=== PATIENT | male | born 1955 | race Caucasian/White ===

== ENCOUNTER → 2020-01-13 11:23 | Outpatient (CLI) | payer MEDICARE, SELFPAY ==
--- NOTE | ~2020-01-13 | XR_ITS ---
EXAMINATION: XR knee RT min 4V DATE: 01/13/2020 11:48 INDICATION: Right knee pain. TECHNIQUE: 4 views of right knee were obtained. COMPARISON: None. FINDINGS: There is varus angulation at the knee. No fracture. There is severe osteoarthritis of media l compartment and mild osteoarthritis of lateral and patellofemoral compartments. No knee joint effus ion. There are loose bodies in a Espinosa's cyst. IMPRESSION: 1. Severe right knee osteoarthritis. 2. Loose bodies in a Espinosa's cyst. Reviewed, dictated and finalized at location A.
== END ==
PROVIDERS: Visit Provider Orthopaedic Surgery Sports Medicine
DX: M17.11 Unilateral primary osteoarthritis, right knee (principal); M23.41 Loose body in knee, right knee
CPT/HCPCS: 73564

== ENCOUNTER → 2020-02-11 14:14 | Outpatient (CLI) | payer MEDICARE, SELFPAY ==
--- NOTE | ~2020-02-11 | XR_ITS ---
EXAMINATION: XR ankle LT min 3V DATE: 02/11/2020 15:05 INDICATION: Left ankle pain. TECHNIQUE: 4 views of left ankle were obtained. COMPARISON: None. FINDINGS: There is lateral subluxation or dislocation of calcaneus with respect to talus. There is li emi lateral subluxation or dislocation of navicular with respect to talus. Navicular is not well def ined on the lateral view, and there may be bone volume loss of navicular or fusion of the navicular w ith talus. There is moderate to severe osteoarthritis of the subtalar joint and naviculocuneiform lizabeth nts. No acute fracture. There is heterotopic ossification distal to medial malleolus. There is mild o steoarthritis of the ankle joint. There are enthesophytes at the posterior and plantar aspects of luann caneal tuberosity. Ankle soft tissue swelling is noted. IMPRESSION: 1. Deformity of the hindfoot suspicious for subluxation or dislocation at the subtalar joint and talo navicular joint. Foot radiographs are recommended. 2. Polyarticular osteoarthritis. Reviewed, dictated and finalized at location A. IMPRESSION: 1. Deformity of the hindfoot suspicious for subluxation or dislocation at the s ubtalar joint and talonavicular joint. Foot radiographs are recommended. 2. Polyarticular osteoarthritis.
--- NOTE | ~2020-02-11 | XR_ITS ---
XR ankle RT min 3V 02/11/2020 15:05 Indication: Right ankle pain Procedure: 4 views right ankle Comparison: No prior studies for comparison. Findings: There is advanced polyarticular osteoarthritis of the hindfoot and mid foot, most pronounce d at the talonavicular and subtalar joints. There are is a degenerative calcaneal enthesophyte. There is ossification heterotopic leg, likely involving the Achilles tendon, consistent with remote injury . Mild lateral soft tissue swelling. No acute fracture is identified. Impression: 1: Advanced polyarticular osteoarthritis of the right ankle and midfoot. Reviewed, dictated and finalized at location A. Impression: 1: Advanced polyarticular osteoarthritis of the right ankle and midfoot.
== END ==
DX: M19.072 Primary osteoarthritis, left ankle and foot (principal); M19.071 Primary osteoarthritis, right ankle and foot
CPT/HCPCS: 73610

== ENCOUNTER → 2020-06-23 09:51 | Outpatient (CLI) | payer MEDICARE, SELFPAY ==
--- NOTE | ~2020-06-23 | CT_ITS ---
EXAMINATION: CT ankle LT wo con DATE: 06/23/2020 10:16 INDICATION: Left ankle pain. Primary osteoarthritis. TECHNIQUE: Computed tomography (CT) of the left ankle was performed without intravenous contrast. Aut omated exposure control and iterative reconstruction technique were employed. The dose-length product was 178.43 mGy-cm. Surface rendered 3-D reconstructions were created by the technologist on a [id number] workstation under radiologist supervision. COMPARISON: Left ankle radiographs 02/11/2020 FINDINGS: There is lateral subluxation and valgus angulation of calcaneus with respect to talus. Ther e is lateral subluxation and valgus angulation of the navicular with respect to talus. No acute fract ure. There is heterotopic ossification distal to medial malleolus. There is moderate osteoarthritis o f the tibiotalar joint. There is a pseudoarthrosis between the distal fibula and calcaneus. There is severe osteoarthritis of subtalar joint, talonavicular joint, and the naviculocuneiform joints. There is moderate osteoarthritis of calcaneocuboid joint and mild osteoarthritis of the Lisfranc joint. Th ere are loose bodies in the ankle joint. There is heterotopic calcification dorsal to the midfoot. Th ere are enthesophytes at the posterior and plantar aspects of calcaneal tuberosity. There is soft tis panda swelling of the ankle. IMPRESSION: 1. Polyarticular osteoarthritis. Reviewed, dictated and finalized at location A. FIRST
== END ==
DX: M19.072 Primary osteoarthritis, left ankle and foot (principal)
CPT/HCPCS: 73700

== ENCOUNTER → 2020-07-14 14:27 | Outpatient (CLI) | payer MEDICARE, SELFPAY ==
--- NOTE | ~2020-07-14 | XR_ITS ---
EXAMINATION: 1. XR ankle LT min 3V 2. XR foot LT min 3V DATE: 07/14/2020 15:17 INDICATION: Left foot pain. TECHNIQUE: 4 views of left ankle and 4 views of left foot were obtained. COMPARISON: Left ankle radiographs 02/11/2020, left ankle CT 06/23/2020 FINDINGS: LEFT FOOT: There is mild hallux valgus. No fracture. There are changes of arthrodesis procedure at th e talonavicular joint with 2 lag screws. There are changes of arthrodesis procedure at the subtalar j oint with 2 lag screws and lateral staple. There is severe osteoarthritis of the naviculocuneiform lisandra ints and mild osteoarthritis of many of the other midfoot joints, first metatarsophalangeal joint, an d some of the interphalangeal joints. There are enthesophytes at the posterior and plantar aspects of calcaneal tuberosity. LEFT ANKLE: Bone alignment is normal. No fracture. There is moderate osteoarthritis of the ankle join t, worst medially. There is ankle soft tissue swelling. There are dystrophic calcifications in the so ft tissues around the ankle. IMPRESSION: 1. Arthrodesis procedures involving the subtalar joint and talonavicular joint. 2. Polyarticular osteoarthritis. 3. Mild hallux valgus. Reviewed, dictated and finalized at location A. IMPRESSION: 1. Arthrodesis procedures involving the subtalar joint and talonavicular joint. 2. Polyarticular osteoarthritis. 3. Mild hallux valgus.
== END ==
DX: M79.672 Pain in left foot (principal); M25.572 Pain in left ankle and joints of left foot; Z98.890 Other specified postprocedural states; M19.072 Primary osteoarthritis, left ankle and foot; M20.12 Hallux valgus (acquired), left foot
CPT/HCPCS: 73610; 73630

== ENCOUNTER → 2020-08-16 13:47 | Outpatient (CLI) | payer MEDICARE, SELFPAY ==
--- NOTE | ~2020-08-16 | XR_ITS ---
EXAMINATION: XR ankle LT min 3V, XR foot LT min 3V DATE: 08/16/2020 14:34 INDICATION: Left foot and ankle pain TECHNIQUE: 1. Anteroposterior, mortise, additional oblique and lateral view of the left ankle were obtained. 2. Dorsoplantar, two oblique and lateral views of the left foot were obtained. COMPARISON: None. FINDINGS: Subtalar arthrodesis spanned by a pair of cannulated lag screws extending anterosuperior the from the posterior tuberosity of the calcaneus and there is also a staple spanning the lateral aspect of the subtalar joint. Talonavicular arthrodesis spanned by a medial sided cannulated leg screw and bilatera l sided compression screw. Prominent hypertrophic change at the dorsal head of the talus. There is ca sting material about the left ankle and foot through the distal aspect of the metatarsals and which o bscures fine bone and soft tissue detail. Alignment appears near-anatomic. No fracture. Polyarticular osteoarthritis, mild to moderate at the navicular cuneiform articulation and majority the remaining joints in the left foot. Small Achilles calcaneal spur and moderate-sized plantar calcaneal spur. IMPRESSION: 1. Postoperative changes of instrumented subtalar and talonavicular arthrodeses which are in near-claudia tomic alignment. 2. Polyarticular osteoarthritis at the left ankle and throughout the left foot, moderate at the navic ular cuneiform joints and otherwise mild. 3. Achilles and plantar calcaneal spurs. Reviewed, dictated and finalized at location A. IMPRESSION: 1. Postoperative changes of instrumented subtalar and talonavicular arthrodeses which are in near-anatomic alignment. 2. Polyarticular osteoarthritis at the left ankle and throughout the left foot, moderate at the navicular cuneiform joints and otherwise mild. 3. Achilles and plantar calcaneal spurs.
== END ==
DX: M19.072 Primary osteoarthritis, left ankle and foot (principal)
CPT/HCPCS: 73610; 73630

== ENCOUNTER → 2020-09-08 07:29 | Outpatient (CLI) | payer MEDICARE, SELFPAY ==
--- NOTE | ~2020-09-08 | XR_ITS ---
EXAMINATION: XR ankle LT min 3V DATE: 09/08/2020 08:34 INDICATION: Left ankle pain TECHNIQUE: Anteroposterior, lateral, mortise, and additional oblique view of the ankle were obtained. COMPARISON: 08/16/2020 FINDINGS: Again seen are changes of subtalar and talonavicular arthrodesis. A staple spans the latera l aspect of the subtalar joint. Bone alignment is normal. No fracture is identified. There is promine nt hypertrophic change of the dorsal/distal talus. Calcified atherosclerosis is noted. There is moder ate osteoarthritis of the midfoot. IMPRESSION: 1. Surgical changes of subtalar and talonavicular arthrodesis without acute findings. Reviewed, dictated and finalized at location D. IMPRESSION: 1. Surgical changes of subtalar and talonavicular arthrodesis without acute fin dings.
--- NOTE | ~2020-09-08 | XR_ITS ---
EXAMINATION: XR foot LT min 3V DATE: 09/08/2020 08:34 INDICATION: Left foot pain TECHNIQUE: Dorsoplantar, lateral, and 2 oblique views of the left foot were obtained. COMPARISON: 08/16/2020 FINDINGS: Again noted are changes of subtalar and talonavicular arthrodesis. A staple spans the later al subtalar joint. There is no fracture. Moderate osteoarthritis is noted in the midfoot. Bone alignm ent is normal. There is hypertrophic change of the dorsal/distal aspect of the talus mild osteoarthri tis is noted at the metatarsophalangeal joint and in multiple interphalangeal joints. IMPRESSION: 1. Changes of subtalar and talonavicular fusion without acute osseous abnormality. Reviewed, dictated and finalized at location D. IMPRESSION: 1. Changes of subtalar and talonavicular fusion without acute osseous abnormali ty.
== END ==
DX: M19.072 Primary osteoarthritis, left ankle and foot (principal)
CPT/HCPCS: 73610; 73630

== ENCOUNTER → 2020-10-06 08:54 | Outpatient (CLI) | payer MEDICARE, SELFPAY ==
--- NOTE | ~2020-10-06 | XR_ITS ---
EXAMINATION: XR ankle LT min 3V, XR foot LT min 3V DATE: 10/06/2020 09:25 INDICATION: Left foot and ankle pain post surgery TECHNIQUE: 1. Anteroposterior, mortise, additional oblique and lateral view of the left ankle were obtained. 2. Dorsoplantar, two oblique and lateral views of the left foot were obtained. COMPARISON: 09/08/2020 FINDINGS: Subtalar arthrodesis spanned by a pair of cannulated lag screws extending anterosuperior the from the posterior tuberosity of the calcaneus and there is also a staple spanning the lateral aspect of the subtalar joint. Talonavicular arthrodesis spanned by a medial sided cannulated lag screw and lateral sided compression screw. Prominent hypertrophic and cystic change at the dorsal head of the talus. Al ignment appears near-anatomic. No fracture. Polyarticular osteoarthritis, moderate at the navicular c uneiform articulation and mild at the majority of the remaining joints in the left foot. No evident o steolysis to suggest osteomyelitis. Small Achilles calcaneal spur and moderate-sized plantar calcanea l spur. Small amount of enthesopathic ossification at the proximal plantar aponeurosis. Scattered vas cular calcifications. Small heterotopic ossicles about the medial and lateral aspects of the ankle li emi sequela of chronic ankle sprains. Increased density at the anterior and posterior recess of the ankle joint suggesting the presence of a joint effusion. Persistent edema at Kager's fat pad. Persist ent diffuse soft tissue swelling about the ankle and hindfoot. IMPRESSION: 1. Postoperative changes of instrumented subtalar and talonavicular arthrodeses which are in near-claudia tomic alignment. 2. Polyarticular osteoarthritis at the left ankle and throughout the left foot, moderate at the navic ular cuneiform joints and otherwise mild. 3. Ankle joint effusion and diffuse soft tissue swelling about the left ankle and hindfoot. No eviden t osteolysis to suggest osteomyelitis. Reviewed, dictated and finalized at location A. IMPRESSION: 1. Postoperative changes of instrumented subtalar and talonavicular arthrodeses which are in near-anatomic alignment. 2. Polyarticular osteoarthritis at the left ankle and throughout the left foot, moderate at the navicular cuneiform joints and otherwise mild. 3. Ankle joint effusion and diffuse soft tissue swelling about the left ankle a nd hindfoot. No evident osteolysis to suggest osteomyelitis.
== END ==
DX: M79.672 Pain in left foot (principal); M25.572 Pain in left ankle and joints of left foot; Z98.890 Other specified postprocedural states; M19.072 Primary osteoarthritis, left ankle and foot; M25.472 Effusion, left ankle
CPT/HCPCS: 73610; 73630

== ENCOUNTER → 2020-12-20 07:42 | Outpatient (CLI) | payer MEDICARE, SELFPAY ==
--- NOTE | ~2020-12-20 | XR_ITS ---
EXAMINATION: XR foot LT min 3V DATE: 12/20/2020 08:16 INDICATION: Left foot pain TECHNIQUE: Dorsoplantar, lateral, and 2 oblique views of the left foot were obtained. COMPARISON: 10/06/2020 FINDINGS: Surgical changes of subtalar and talonavicular arthrodesis are again noted. There is modera te osteoarthritis in the midfoot and at the first metatarsophalangeal joint. Mild osteoarthritis is p resent throughout the remainder of the interphalangeal joints. There is no fracture. The soft tissues are unremarkable. IMPRESSION: 1. Mild to moderate osteoarthritis without acute findings or significant interval change. Reviewed, dictated and finalized at location B. IMPRESSION: 1. Mild to moderate osteoarthritis without acute findings or significant interv al change.
--- NOTE | ~2020-12-20 | XR_ITS ---
EXAMINATION: XR ankle LT min 3V DATE: 12/20/2020 08:16 INDICATION: Left ankle pain TECHNIQUE: Anteroposterior, lateral, mortise, and additional oblique view of the ankle were obtained. COMPARISON: 10/06/2020 FINDINGS: Changes of subtalar and talonavicular arthrodesis are again noted. There is no fracture, di slocation, or subluxation. There is hypertrophic and cystic change at the dorsal head of the talus. T here is unchanged mild/moderate osteoarthritis. Mild soft tissue swelling is present. There is calcif ied atherosclerosis. IMPRESSION: 1. Surgical changes and mild to moderate osteoarthritis without acute findings or significant interva l change. Reviewed, dictated and finalized at location B. IMPRESSION: 1. Surgical changes and mild to moderate osteoarthritis without acute findings or significant interval change.
== END ==
DX: M19.072 Primary osteoarthritis, left ankle and foot (principal)
CPT/HCPCS: 73610; 73630

== ENCOUNTER → 2021-01-22 09:37 | Outpatient (CLI) | payer MEDICARE, SELFPAY ==
--- NOTE | ~2021-01-22 | XR_ITS ---
XR shoulder LT min 2V DATE: 01/22/2021 09:56 INDICATION: Left shoulder pain TECHNIQUE: 3 views COMPARISON: None FINDINGS: There is moderate degenerative spurring of the left acromioclavicular joint. There is mild osteoarthritis at the left glenohumeral joint. No fracture, dislocation, periosteal reaction or bone destruction. No abnormal soft tissue calcificat ion. There is mild superior subluxation of the humeral head suggesting rotator cuff atrophy. Diffuse idiopathic skeletal hyperostosis of the thoracic spine. IMPRESSION: Degenerative changes of the left acromioclavicular and glenohumeral joints Probable rotator cuff atrophy Diffuse idiopathic skeletal hyperostosis of the thoracic spine Reviewed, dictated and finalized at location B.
== END ==
PROVIDERS: PCP Family Medicine Sports Medicine; Visit Provider Specialist
DX: S43.002A Unspecified subluxation of left shoulder joint, initial encounter (principal); M48.14 Ankylosing hyperostosis [Forestier], thoracic region
CPT/HCPCS: 73030